=== PATIENT | male | born 1985 | race Caucasian/White ===

== ENCOUNTER 2017-01-28 12:10 | Emergency (ER) | payer SELFPAY ==
[~2017-01-28] VITALS: Ht 185.4 cm; Wt 95.3 kg
[2017-01-28] MEDS ORDERED: ASPIRIN CHEWABLE 81 MG TABLET. PO ONE (12:30)
[2017-01-28 12:38] LABS: BASO % 1 % (0-3); EOS % 3 % (0-3); HEMATOCRIT 47.7 % (39.0-53.0); LYMPH # 2.2 x10^3/uL (1.0-4.8); LYMPH % 38 % (24-48); MEAN CORPUSCULAR HEMOGLOBIN 29 pg (25-35); MEAN CORPUSCULAR HGB CONC 34 g/dL (31-37); MEAN CORPUSCULAR VOLUME 87 fL (79-100); MONO % 7 % (0-9); NEUT % 52 % (31-73); PLATELET COUNT 293 x10^3/uL (140-400); RED BLOOD COUNT 5.48 x10^6/uL (4.30-5.70); RED CELL DISTRIBUTION WIDTH 13.5 % (11.5-14.5); WHITE BLOOD COUNT 5.9 x10^3/uL (4.0-11.0)
[2017-01-28 12:52] LABS: CALCIUM 9.4 mg/dL (8.5-10.1); CREATININE 0.9 mg/dL (0.7-1.3); GFR 97.2; POTASSIUM 4.5 mmol/L (3.5-5.1)
--- NOTE | 2017-01-28 12:54 | RAD ---
Indication chest pain. A single view of the chest was obtained. No prior imaging of the chest is available. The heart, pulmonary vessels and mediastinum appear normal. The lungs are clear. Bony structures appear grossly intact. IMPRESSION: No acute or significant finding in the chest
[2017-01-28 12:58] LABS: ALBUMIN 4.1 g/dL (3.4-5.0); DIRECT BILIRUBIN 0.3 mg/dL (0.0-0.2); TOTAL BILIRUBIN 1.2 mg/dL (0.2-1.0); TOTAL PROTEIN 8.4 g/dL (6.4-8.2)
[2017-01-28] MEDS ORDERED: HYDR-2666 PO (13:06)
--- NOTE | 2017-01-28 13:07 | PHYS DOC ---
Past Medical History Past Medical History: Other Additional Past Medical Histor: Hepatitis C Past Surgical History: Appendectomy, Cholecystectomy Alcohol Use: None Drug Use: Marijuana Adult General Chief Complaint Chief Complaint: CHEST PAIN HPI HPI 31-year-old male presenting to the emergency department with chest pain started about 24 hours ago while working. He describes it as a constant dull sensation in the midsternal region. The pain is nonradiating. He does have mild nausea intermittently. He denies a history of hypertension hyperlipidemia. He denies diabetes. He denies unilateral leg swelling personal or family history of blood clotting disorders hemoptysis recent immobilization or surgery. Review of systems is negative for fevers chills cough. He denies diaphoresis. Currently he is not having nausea vomiting shortness of breath. He does state he has had some of these symptoms intermittently over the past 48 hours. All other review of systems is negative unless otherwise noted in history of present illness. Review of Systems Review of Systems SEE ABOVE. Current Medications Current Medications Current Medications Medications (Trade) Dose Ordered Sig/[place] Start Time Stop Time Status Last Admin Dose Admin Acetaminophen/ Hydrocodone Bitart (Lortab 5/325) 2 tab 1X ONCE 01/28/17 13:15 01/28/17 13:16 Aspirin (Children'S Aspirin) 324 mg 1X ONCE 01/28/17 12:30 01/28/17 12:31 DC Allergies Allergies Allergies Coded Allergies Type Severity Reaction Last Updated Verified No Known Drug Allergies 01/28/17 No Physical Exam Physical Exam Constitutional: Well developed, well nourished, no acute distress, non-toxic appearance. [] HENT: Normocephalic, atraumatic, bilateral external ears normal, oropharynx moist, no oral exudates, nose normal. Eyes: PERRLA, EOMI, conjunctiva normal, no discharge. [] Neck: Normal range of motion, no tenderness, supple, no stridor. Cardiovascular:Heart rate regular rhythm, no murmur [] Lungs & Thorax: Bilateral breath sounds clear to auscultation . Tenderness to palpation of the chest wall. Abdomen: Bowel sounds normal, soft, no tenderness, no masses, no pulsatile masses. [] Skin: Warm, dry, no erythema, no rash. Back: No tenderness, no CVA tenderness. [] Extremities: No tenderness, no cyanosis, no clubbing, ROM intact, no edema. [] Neurologic: Alert and oriented X 3, normal motor function, normal sensory function, no focal deficits noted. Psychologic: Affect normal, judgement normal, mood normal. [] Current Patient Data Vital Signs Vital Signs Date Time Temp Pulse Resp B/P (MAP) Pulse Ox O2 Delivery O2 Flow Rate FiO2 01/28/17 12:20 97.3 83 20 127/88 (101) 95 Room Air 97.3 Lab Values Laboratory Tests Test 01/28/17 12:25 White Blood Count 5.9 x10^3/uL (4.0-11.0) Red Blood Count 5.48 x10^6/uL (4.30-5.70) Hemoglobin 16.0 g/dL (13.0-17.5) Hematocrit 47.7 % (39.0-53.0) Mean Corpuscular Volume 87 fL (79-100) Mean Corpuscular Hemoglobin 29 pg (25-35) Mean Corpuscular Hemoglobin Concent 34 g/dL (31-37) Red Cell Distribution Width 13.5 % (11.5-14.5) Platelet Count 293 x10^3/uL (140-400) Neutrophils (%) (Auto) 52 % (31-73) Lymphocytes (%) (Auto) 38 % (24-48) Monocytes (%) (Auto) 7 % (0-9) Eosinophils (%) (Auto) 3 % (0-3) Basophils (%) (Auto) 1 % (0-3) Neutrophils # (Auto) 3.1 x10^3uL (1.8-7.7) Lymphocytes # (Auto) 2.2 x10^3/uL (1.0-4.8) Monocytes # (Auto) 0.4 x10^3/uL (0.0-1.1) Eosinophils # (Auto) 0.2 x10^3/uL (0.0-0.7) Basophils # (Auto) 0.0 x10^3/uL (0.0-0.2) Sodium Level 141 mmol/L (136-145) Potassium Level 4.5 mmol/L (3.5-5.1) Chloride Level 104 mmol/L (98-107) Carbon Dioxide Level 26 mmol/L (21-32) Anion Gap 11 (6-14) Blood Urea Nitrogen 14 mg/dL (8-26) Creatinine 0.9 mg/dL (0.7-1.3) Estimated GFR (Cockcroft-Gault) 97.2 Glucose Level 108 mg/dL (70-99) H Calcium Level 9.4 mg/dL (8.5-10.1) Total Bilirubin 1.2 mg/dL (0.2-1.0) H Direct Bilirubin 0.3 mg/dL (0.0-0.2) H Aspartate Amino Transferase (AST) 180 U/L (15-37) H Alanine Aminotransferase (ALT) 154 U/L (16-63) H Alkaline Phosphatase 73 U/L (46-116) Troponin I Quantitative < 0.017 ng/mL (0.000-0.055) QX-Rou-L-Type Natriuretic Peptide < 5 pg/mL (0-124) Total Protein 8.4 g/dL (6.4-8.2) H Albumin 4.1 g/dL (3.4-5.0) Lipase 132 U/L (73-393) Laboratory Tests 01/28/17 12:25 Laboratory Tests 01/28/17 12:25 EKG EKG EKG shows sinus rhythm with a regular rate. [place] is normal. Intervals are within normal limits. ST segments when compared to the TP segment does not have greater than 1 mm elevation. T-wave amplitude is mildly elevated. Repeat EKG shows no acute evolving changes. [] Radiology/Procedures Radiology/Procedures []Chest x-ray reviewed by myself shows no obvious infiltrate or pneumothorax present. No obvious acute cardiopulmonary process present. Course & Med Decision Making Course & Med Decision Making Pertinent Labs and Imaging studies reviewed. (See chart for details) [] 31-year-old male presenting to the emergency department today with chest pain. EKG unremarkable as an increased amplitude T waves. Repeat EKG similar to previous. Troponin negative. Troponin testing greater than 6 hours outside of the patient's chest pain. Otherwise blood work unremarkable. The patient had received aspirin prior to arrival. The patient was then discharged home in stable condition to follow up with their primary care physician over the next 2- 3 days. They were to return if their symptoms worsened or if they were concerned for any reason. [id number] discharge instructions and return precautions were given. Patient's questions were answered to their satisfaction. Patient is comfortable plan. Dragon Disclaimer Dragon Disclaimer This [address] medical record was generated, in whole or in part, using a voice recognition dictation system. Departure Departure Impression: Primary Impression: Chest pain Disposition: 01 HOME, SELF-CARE Condition: STABLE Referrals: SU WILKINS MD, VENKAT R MD Patient Instructions: Chest Pain (Nonspecific) Additional Instructions: Thank you for allowing us to participate in your care today. Followup with your primary care physician in 3 days if your symptoms do not improve. If you do not have a primary care provider you can ask for a list of our primary care providers. Return to the emergency department you have any new or concerning findings. This should be evaluated by the primary care physician and any necessary consulting services for continued management within a few days after discharge. Return to emergency room if you have any new or concerning symptoms including but not limited to fever, chills, nausea, vomiting, intractable pain, any new rashes, chest pain, shortness of air, uncontrolled bleeding, difficulty breathing, and/or vision loss. You may have been prescribed medication that can change in your level of thinking and ability to operate machinery. These medications include hydrocodone and Ativan. Also, Benadryl has been known to do this as well. Be sure to check with your pharmacist and ask if the medications you've prescribed can affect your level of consciousness. I recommend not operating heavy machinery or driving while on medication such as these. Scripts Hydrocodone Bit/Acetaminophen (HYDROCODONE-APAP 5-325 ) 1 Each Tablet 1 TAB PO PRN Q6HRS Y for PAIN, #4 TAB 0 Refills Be careful as this medication may cause you to be drowsy or tired. Do not drive on this medication. Prov: YASHIRA FRY MD 01/28/17 YASHIRA FRY MD January 28, 2017 13:07
[2017-01-28] MEDS ORDERED: HYDROcodone/APAP 5/325MG 1 TAB TABLET PO ONE (13:15)
[2017-01-28 13:21] VITALS: BP 133/79
--- NOTE | 2017-01-28 16:50 | EKG ---
[facility] [address] [place] [address] Test Date: 2017-01-28 Test Time: 12:21:12 Pat Name: GUILLE ALEXIS Department: Room: Gender: M Coding Compliance Specialist: : 1985 Requested By: YASHIRA FRY Order Number: [id number] Reading MD: Dottie Mayfield Measurements Intervals [place] Rate: 77 P: 49 UT: 148 QRS: 53 QRSD: 84 T: 27 QT: 348 QTc: 395 Interpretive Statements SINUS RHYTHM NORMAL EKG Electronically Signed On 01-30-2017 15:33:20 CDT by Dottie Mayfield
--- NOTE | 2017-01-29 13:11 | EKG ---
[facility] [address] [place] [address] Test Date: 2017-01-28 Test Time: 13:03:18 Pat Name: GUILLE ALEXIS Department: Room: Gender: M Cvicu Rn: : 1985 Requested By: YASHIRA FRY Order Number: [id number] Reading MD: Dottie Mayfield Measurements Intervals [place] Rate: 73 P: 42 NV: 156 QRS: 34 QRSD: 86 T: 18 QT: 360 QTc: 400 Interpretive Statements SINUS RHYTHM NORMAL ECG RI6.01 Unconfirmed report No previous ECG available for comparison Electronically Signed On 01-30-2017 15:33:40 CDT by Dottie Mayfield
== END 2017-01-28 13:42 | disposition home or self-care (01) ==
LOC: ER 12:10
DX: R07.89 Other chest pain (principal); R11.0 Nausea; F12.10 Cannabis abuse, uncomplicated; Z86.19 Personal history of other infectious and parasitic diseases
CPT/HCPCS: 36415; 71010; 80048; 80076; 83690; 83880; 84484; 85027; 93005; 99285-25